=== PATIENT | male | born 1945 | race Caucasian/White ===

== ENCOUNTER → 2023-05-27 | Outpatient (CLI) | payer OTHER ==
[~2023-05-27] MED LIST: ALENDRONATE SOD70 MG PO; ANTIVERT/2525 M1 PO; ANTIVERT/2525 MG PO; ASPIRIN81 M1 PO; ATENOLOL25 MG PO; BUPROPION HCL150 M1 PO; CALCIUM + D 6001 TA1 PO; GABAPENTIN300 MG PO; GABAPENTIN600 MG PO; LISINOPRIL10 MG PO; MICONAZOLE2%; NORCO 5-325 TA1 EACH PO; PREVPAC PO; SIMVASTATIN80 MG PO; TESTOSTERO200 MG/10 IM; TRAZADONE HYDR100 MG PO; VIAGRA100 MG PO; VISTARIL25 M1 PO; VITAMIN D50000 I3 PO; ZOFRAN4 MG PO
== END | disposition home or self-care (01) ==
LOC: CARD 11:43
PROVIDERS: ATTEND Registered Nurse
DX: I51.7 Cardiomegaly (principal); R06.02 Shortness of breath

== ENCOUNTER → 2023-12-08 | Day surgery (SDC) | payer OTHER ==
[~2023-12-08] VITALS: Ht 175.2 cm; Wt 88.0 kg
[~2023-12-08] MED LIST changes: +GALANTAMINE HYD12 MG PO; +LISINOPRIL5 MG PO; +MAGNESIUM400 M1 PO; +MELOXICAM15 MG PO; +MULTIVITAMINS1 EAC6 PO; +Midazolam Hydrochloride 2 MG/2 ML VIAL IV ONE; +PROPOFOL 200 MG/20 ML VIAL IV ONE; +PROTONIX20 MG PO; +SINGULAIR10 M1 PO; +SODIUM CHLORIDE 0.9% 1,000 ML IV ONE; +ZYRTEC ALLERGY10 MG PO
[2023-12-08 09:54] VITALS: BP 174/90
[2023-12-08 12:10] VITALS: BP 115/64
[2023-12-08 12:25] VITALS: BP 111/75
[2023-12-08 12:40] VITALS: BP 128/67
== END | disposition home or self-care (01) ==
LOC: SDC 12-04 10:15
PROVIDERS: ATTEND Surgery
DX: Z12.11 Encounter for screening for malignant neoplasm of colon (principal); K57.30 Diverticulosis of large intestine without perforation or abscess without bleeding; K64.0 First degree hemorrhoids; R10.13 Epigastric pain; K25.9 Gastric ulcer, unspecified as acute or chronic, without hemorrhage or perforation; K29.50 Unspecified chronic gastritis without bleeding; G47.30 Sleep apnea, unspecified; E11.9 Type 2 diabetes mellitus without complications; I10 Essential (primary) hypertension; J45.909 Unspecified asthma, uncomplicated; Z87.891 Personal history of nicotine dependence; Z86.010 Personal history of colon polyps; Z79.899 Other long term (current) drug therapy